=== PATIENT | female | born 1990 | race Caucasian/White ===

== ENCOUNTER → 2018-07-04 | Emergency (ER) | payer OTHER ==
[~2018-07-04] VITALS: Ht 175.3 cm; Wt 85.3 kg
== END ==
LOC: ED 00:54
DX: T23.051A Burn of unspecified degree of right palm, initial encounter (principal); T23.052A Burn of unspecified degree of left palm, initial encounter; T31.0 Burns involving less than 10% of body surface; X10.1XXA Contact with hot food, initial encounter
CPT/HCPCS: 99283